=== PATIENT | female | born 1965 | race African-American/Black ===

== ENCOUNTER 2016-09-22 11:02 | Inpatient (IN) | payer OTHER ==
[~2016-09-22] VITALS: Ht 165.1 cm; Wt 127.2 kg
[~2016-09-22 11:02] MED LIST: AMLO-512 PO; ASPI-556 PO; ATEN50TA PO; CLON0.1T PO; DSS100 PO; FURO40 PO; GLIP5 PO; ISOS1TAB2 PO; VITAD1000 PO
[2016-09-22 11:11] LABS: GLUCOSE,POINT OF CARE 167 MG/DL (70-110)
[2016-09-22 11:29] LABS: BASOPHILS # (AUTO) 0.04 K/uL (0.00-0.20); BASOPHILS % (AUTO) 0.4 % (0.0-2.0); EOSINOPHILS % (AUTO) 5.39 % (1.0-6.0); HEMATOCRIT 35.5 % (36-46); HEMOGLOBIN 11.7 g/dL (12.0-16.0); LYMPHOCYTES # (AUTO) 1.4 K/uL (1.0-4.8); LYMPHOCYTES % (AUTO) 14.9 % (22.0-44.0); MEAN CORPUSCULAR HEMOGLOBIN 26.5 pg (26.0-34.0); MEAN CORPUSCULAR HGB CONC 32.9 G/dL (31.0-37.0); MEAN CORPUSCULAR VOLUME 81 fL (80-100); MONOCYTES # (AUTO) 0.4 K/uL (0.1-1.0); MONOCYTES % (AUTO) 4.4 % (2.0-9.0); NEUTROPHILS # (AUTO) 6.9 K/uL (1.8-7.7); NEUTROPHILS % (AUTO) 74.9 % (40.0-70.0); PLATELET COUNT (AUTO) 298 K/uL (150-450); RED CELL DISTRIBUTION WIDTH 17.2 % (11.5-14.5); WHITE BLOOD COUNT (AUTO) 9.3 K/uL (4.5-11.0)
[2016-09-22 11:39] LABS: CALCIUM, TOTAL 9.2 mg/dL (8.8-10.5); CREATININE 1.45 mg/dL (0.60-1.30); POTASSIUM 3.1 mmol/L (3.5-5.1)
[2016-09-22 11:45] LABS: ALBUMIN 3.2 g/dL (3.4-5.0); BILIRUBIN,TOTAL 0.7 mg/dL (0.1-1.0)
[2016-09-22] MEDS ORDERED: 0.9% SODIUM CHLORIDE 15 ML NEB SOLUTION NEB ONE (12:55)
[2016-09-22] MEDS ORDERED: IPRATROPIUM BROMIDE 0.5 MG/2.5 ML NEB SOLUTION NEB ONE (13:00)
[2016-09-22] MEDS ORDERED: ALBUTEROL SULFATE 5 MG/ML 20 ML NEB SOLN [BULK] NEB ONE (13:00)
[2016-09-22] MEDS ORDERED: CloNIDine HCL 0.1 MG TABLET PO ONE (16:30)
[2016-09-22] MEDS ORDERED: ATENOLOL 50 MG TABLET PO ONE (16:30)
[2016-09-22] MEDS ORDERED: FUROSEMIDE 40 MG/4 ML VIAL IVP ONE (16:30)
[2016-09-22] MEDS ORDERED: ASPIRIN 325 MG EC TABLET PO ONE (16:30)
[2016-09-22 17:06] LABS: GLUCOSE,POINT OF CARE 145 MG/DL (70-110)
[2016-09-22] MEDS ORDERED: CloNIDine HCL 0.2 MG TABLET PO ONE (18:45)
[2016-09-22 20:52] LABS: GLUCOSE,POINT OF CARE 178 MG/DL (70-110)
[2016-09-22] MEDS ORDERED: MORPHINE SULFATE 2 MG/ML SYRINGE IVP ONE (21:00)
[2016-09-22] MEDS ORDERED: ONDANSETRON HCL 4 MG/2 ML VIAL IVP ONE (21:00)
[2016-09-22] MEDS ORDERED: DEXTROSE 50%-WATER 25 GM/50 ML SYRINGE IVP PRN (21:15)
[2016-09-22] MEDS ORDERED: OxyCODONE HCL/ACETAMINOPHEN 5-325 MG TABLET PO PRN (21:15)
[2016-09-22] MEDS ORDERED: MAGNESIUM HYDROXIDE SUSPENSION 30 ML UDCUP PO PRN (21:15)
[2016-09-22] MEDS ORDERED: ACETAMINOPHEN 325 MG TABLET PO PRN (21:15)
[2016-09-22] MEDS ORDERED: ALBUTEROL SULFATE 2.5 MG/0.5 ML NEB SOLUTION NEB PRN (21:15)
[2016-09-22] MEDS ORDERED: CloNIDine HCL 0.1 MG TABLET PO PRN (21:15)
[2016-09-22] MEDS: ASPIRIN 81 MG CHEWABLE TABLET PO SCH (21:48)
[2016-09-22] MEDS: LOSARTAN POTASSIUM 25 MG TABLET PO SCH (21:48)
[2016-09-22] MEDS: SIMVASTATIN 20 MG TABLET PO SCH (21:48)
[2016-09-22] MEDS: AmLODIPine BESYLATE 10 MG TABLET PO SCH (21:48)
[2016-09-23] VITALS (9 sets, daily range): BP systolic 146–182; BP diastolic 9–109
[2016-09-23] MEDS: POTASSIUM CHLORIDE 20 MEQ ER TABLET PO PRN (00:45)
[2016-09-23 08:00] LABS: ANION GAP 8 mmol/L (8-16); CALCIUM, TOTAL 8.7 mg/dL (8.8-10.5); CARBON DIOXIDE 24 mmol/L (22-29); CHLORIDE 108 mmol/L (98-107); CREATININE 0.75 mg/dL (0.60-1.30); GLOMERULAR FILTR. RATE CALC > 60 mL/min (>60); POTASSIUM 4.5 mmol/L (3.5-5.1); SODIUM SERUM 140 mmol/L (136-145); UREA NITROGEN, BLOOD 26 mg/dL (7-18)
[2016-09-23] MEDS: CloNIDine HCL 0.2 MG TABLET PO SCH ×3 (08:00→20:00)
[2016-09-23] MEDS: HEPARIN SODIUM,PORCINE 5,000 UNITS/ML VIAL SQ SCH ×3 (08:23→20:00)
[2016-09-23] MEDS ORDERED: MORPHINE SULFATE 2 MG/ML SYRINGE IVP PRN (12:30)
[2016-09-23] MEDS ORDERED: NITROGLYCERIN 0.3 MG SUBLINGUAL TABLET #100 SL PRN (12:30)
[2016-09-23] MEDS ORDERED: NITROGLYCERIN 2% (1 GM=INCH) PACKET TP SCH (12:30)
[2016-09-23] MEDS: PANTOPRAZOLE SODIUM 40 MG DR TABLET PO SCH (12:53)
[2016-09-23] MEDS: DOCUSATE SODIUM 100 MG CAPSULE PO SCH ×2 (20:00→22:16)
[2016-09-23] MEDS: LOSARTAN POTASSIUM 25 MG TABLET PO SCH ×2 (20:00→22:16)
[2016-09-23] MEDS: NITROGLYCERIN 2% (1 GM=INCH) PACKET TP SCH (20:09)
[2016-09-23] MEDS: SIMVASTATIN 20 MG TABLET PO SCH (20:52)
[2016-09-23] MEDS: FUROSEMIDE 40 MG TABLET PO SCH (20:52)
[2016-09-23] MEDS: AmLODIPine BESYLATE 10 MG TABLET PO SCH (20:52)
[2016-09-23] MEDS: ASPIRIN 81 MG CHEWABLE TABLET PO SCH (20:52)
[2016-09-23] MEDS: INSULIN ASPART 100 UNITS/ML SQ PRN (20:56)
[2016-09-24] MEDS: CloNIDine HCL 0.2 MG TABLET PO SCH ×3 (01:51→08:32)
[2016-09-24 05:12] VITALS: BP 157/78
[2016-09-24] MEDS: NITROGLYCERIN 2% (1 GM=INCH) PACKET TP SCH ×3 (05:57→12:09)
[2016-09-24 06:11] LABS: CALCIUM, TOTAL 8.8 mg/dL (8.8-10.5); CREATININE 1.51 mg/dL (0.60-1.30)
[2016-09-24 06:30] LABS: BASOPHILS % (AUTO) 0.3 % (0.0-2.0); EOSINOPHILS % (AUTO) 5.6 % (1.0-6.0); HEMATOCRIT 32.8 % (36-46); HEMOGLOBIN 10.5 g/dL (12.0-16.0); LYMPHOCYTES # (AUTO) 1.6 K/uL (1.0-4.8); LYMPHOCYTES % (AUTO) 21.1 % (22.0-44.0); MEAN CORPUSCULAR HEMOGLOBIN 26.1 pg (26.0-34.0); MEAN CORPUSCULAR HGB CONC 31.9 G/dL (31.0-37.0); MEAN CORPUSCULAR VOLUME 82 fL (80-100); MONOCYTES # (AUTO) 0.5 K/uL (0.1-1.0); MONOCYTES % (AUTO) 6.3 % (2.0-9.0); NEUTROPHILS # (AUTO) 5.2 K/uL (1.8-7.7); NEUTROPHILS % (AUTO) 66.7 % (40.0-70.0); PLATELET COUNT (AUTO) 262 K/uL (150-450); RED CELL DISTRIBUTION WIDTH 16.5 % (11.5-14.5); WHITE BLOOD COUNT (AUTO) 7.8 K/uL (4.5-11.0)
[2016-09-24 07:06] LABS: POTASSIUM 2.9 mmol/L (3.5-5.1)
[2016-09-24 07:38] VITALS: BP 158/76
[2016-09-24] MEDS ORDERED: SODIUM CHLORIDE 0.9% 250 ML IV ONE ×2 (07:39→07:40)
[2016-09-24] MEDS: POTASSIUM CHL 10 MEQ/WATER 50 ML IV PRN ×3 (07:57→12:08)
[2016-09-24] MEDS: HEPARIN SODIUM,PORCINE 5,000 UNITS/ML VIAL SQ SCH ×2 (08:31)
[2016-09-24] MEDS: PANTOPRAZOLE SODIUM 40 MG DR TABLET PO SCH (08:32)
[2016-09-24] MEDS: DOCUSATE SODIUM 100 MG CAPSULE PO SCH ×2 (08:32→20:39)
[2016-09-24] MEDS: LOSARTAN POTASSIUM 25 MG TABLET PO SCH ×2 (08:32→20:39)
[2016-09-24 08:41] LABS: GLUCOSE,POINT OF CARE 133 MG/DL (70-110)
[2016-09-24] MEDS: INSULIN ASPART 100 UNITS/ML SQ PRN ×3 (12:03→20:45)
[2016-09-24 15:51] LABS: GLUCOSE COMMENT 1 Received Meds; GLUCOSE,POINT OF CARE 155 MG/DL (70-110)
[2016-09-24] MEDS ORDERED: 0.9% SODIUM CHLORIDE 5 ML NEB SOLUTION NEB ONE (16:53)
[2016-09-24 18:18] VITALS: BP 137/83
[2016-09-24 19:46] VITALS: BP 135/81
[2016-09-24] MEDS: ASPIRIN 81 MG CHEWABLE TABLET PO SCH (20:39)
[2016-09-24] MEDS: FUROSEMIDE 40 MG TABLET PO SCH (20:39)
[2016-09-24] MEDS: AmLODIPine BESYLATE 10 MG TABLET PO SCH (20:39)
[2016-09-24] MEDS: SIMVASTATIN 20 MG TABLET PO SCH (20:39)
[2016-09-24 23:51] VITALS: BP 156/98
[2016-09-25] MEDS: NITROGLYCERIN 2% (1 GM=INCH) PACKET TP SCH ×4 (00:49→11:38)
[2016-09-25] MEDS: HEPARIN SODIUM,PORCINE 5,000 UNITS/ML VIAL SQ SCH ×4 (00:50→16:19)
[2016-09-25] MEDS: CloNIDine HCL 0.2 MG TABLET PO SCH ×4 (00:50→16:16)
[2016-09-25 05:00] VITALS: BP 153/88
[2016-09-25 05:43] LABS: GLUCOSE COMMENT 1 Received Meds; GLUCOSE,POINT OF CARE 170 MG/DL (70-110)
[2016-09-25 05:43] LABS: GLUCOSE COMMENT 1 Received Meds; GLUCOSE,POINT OF CARE 157 MG/DL (70-110)
[2016-09-25 06:00] LABS: BASOPHILS # (AUTO) 0.02 K/uL (0.00-0.20); BASOPHILS % (AUTO) 0.3 % (0.0-2.0); EOSINOPHILS # (AUTO) 0.31 K/uL (0.00-0.70); HEMATOCRIT 30.8 % (36-46); HEMOGLOBIN 10.2 g/dL (12.0-16.0); LYMPHOCYTES # (AUTO) 1.1 K/uL (1.0-4.8); LYMPHOCYTES % (AUTO) 17.7 % (22.0-44.0); MEAN CORPUSCULAR HEMOGLOBIN 26.9 pg (26.0-34.0); MEAN CORPUSCULAR HGB CONC 33.2 G/dL (31.0-37.0); MEAN CORPUSCULAR VOLUME 81 fL (80-100); MONOCYTES # (AUTO) 0.5 K/uL (0.1-1.0); MONOCYTES % (AUTO) 7.1 % (2.0-9.0); NEUTROPHILS # (AUTO) 4.5 K/uL (1.8-7.7); NEUTROPHILS % (AUTO) 70.2 % (40.0-70.0); PLATELET COUNT (AUTO) 243 K/uL (150-450); RED BLOOD CELL COUNT(AUTO) 3.79 MIL/uL (4.00-5.20); RED CELL DISTRIBUTION WIDTH 17.2 % (11.5-14.5); WHITE BLOOD COUNT (AUTO) 6.4 K/uL (4.5-11.0)
[2016-09-25 06:15] LABS: CREATININE 1.65 mg/dL (0.60-1.30); POTASSIUM 3.2 mmol/L (3.5-5.1)
[2016-09-25] MEDS: INSULIN ASPART 100 UNITS/ML SQ PRN ×2 (06:49→11:39)
[2016-09-25 07:27] VITALS: BP 164/83
[2016-09-25] MEDS: DOCUSATE SODIUM 100 MG CAPSULE PO SCH (08:11)
[2016-09-25] MEDS: LOSARTAN POTASSIUM 25 MG TABLET PO SCH (08:11)
[2016-09-25] MEDS: PANTOPRAZOLE SODIUM 40 MG DR TABLET PO SCH (08:11)
[2016-09-25] MEDS: POTASSIUM CHLORIDE 20 MEQ ER TABLET PO PRN (08:12)
[2016-09-25] MEDS: FUROSEMIDE 40 MG TABLET PO SCH ×2 (08:12→09:00)
[2016-09-25] MEDS ORDERED: ALPRAZolam 0.25 MG TABLET PO PRN (11:00)
[2016-09-25 11:17] VITALS: BP 132/72
[2016-09-25 15:05] VITALS: BP 144/80
[2016-09-25] MEDS ORDERED: LOSA25TA21 PO (17:04)
[2016-09-25] MEDS ORDERED: SIMV-260 PO (17:05)
[2016-09-25] MEDS ORDERED: OXYGEN THERAPY IH SCH (20:00)
[2016-10-06 06:53] LABS: GLUCOSE COMMENT 1 Received Meds; GLUCOSE,POINT OF CARE 173 MG/DL (70-110)
[2016-10-06 06:54] LABS: GLUCOSE COMMENT 1 Received Meds; GLUCOSE,POINT OF CARE 171 MG/DL (70-110)
[2016-10-06 06:54] LABS: GLUCOSE,POINT OF CARE 159 MG/DL (70-110)
== END 2016-09-25 18:10 | disposition home or self-care (01) | DRG 304 ==
LOC: EMS 11:04 → AHU 09-23 07:24 → 5S 09-23 18:25
PROVIDERS: ADMIT Internal Medicine; ATTEND Internal Medicine
DX: I16.0 Hypertensive urgency (principal); I50.23 Acute on chronic systolic (congestive) heart failure; E44.0 Moderate protein-calorie malnutrition; Z68.42 Body mass index [BMI] 45.0-49.9, adult; N17.9 Acute kidney failure, unspecified; I11.0 Hypertensive heart disease with heart failure; E11.9 Type 2 diabetes mellitus without complications; E66.01 Morbid (severe) obesity due to excess calories; I70.0 Atherosclerosis of aorta; E78.5 Hyperlipidemia, unspecified; F15.10 Other stimulant abuse, uncomplicated; I25.5 Ischemic cardiomyopathy; F17.210 Nicotine dependence, cigarettes, uncomplicated; Z91.14 Patient's other noncompliance with medication regimen; Z79.899 Other long term (current) drug therapy; Z79.82 Long term (current) use of aspirin; Z79.84 Long term (current) use of oral hypoglycemic drugs; Z98.890 Other specified postprocedural states; Z71.51 Drug abuse counseling and surveillance of drug abuser; Z53.29 Procedure and treatment not carried out because of patient's decision for other reasons
CPT/HCPCS: 82962; 84132; 93005; 93306; 94644; 96374; 96375; 99291; J1644; J1940; J2270; J2405; J3480; J7050

== ENCOUNTER 2017-02-03 21:21 | Emergency (ER) | payer OTHER ==
[~2017-02-03] VITALS: Ht 162.6 cm; Wt 97.0 kg
[~2017-02-03 21:21] MED LIST changes: +LOSA25TA21 PO; +SIMV-260 PO
[2017-02-03 21:27] VITALS: BP 116/67
[2017-02-03 21:37] LABS: GLUCOSE,POINT OF CARE 318 MG/DL (70-110)
[2017-02-03] MEDS ORDERED: CARV25 PO (21:39)
[2017-02-03 22:01] LABS: BASOPHILS % (AUTO) 0.2 % (0.0-2.0); EOSINOPHILS % (AUTO) 1.5 % (1.0-6.0); HEMATOCRIT 35.9 % (36-46); HEMOGLOBIN 12.2 g/dL (12.0-16.0); LYMPHOCYTES # (AUTO) 1.3 K/uL (1.0-4.8); LYMPHOCYTES % (AUTO) 13.9 % (22.0-44.0); MEAN CORPUSCULAR HEMOGLOBIN 27.8 pg (26.0-34.0); MEAN CORPUSCULAR HGB CONC 33.9 G/dL (31.0-37.0); MEAN CORPUSCULAR VOLUME 82 fL (80-100); MONOCYTES # (AUTO) 0.7 K/uL (0.1-1.0); MONOCYTES % (AUTO) 7.5 % (2.0-9.0); NEUTROPHILS # (AUTO) 7.1 K/uL (1.8-7.7); NEUTROPHILS % (AUTO) 76.9 % (40.0-70.0); PLATELET COUNT (AUTO) 296 K/uL (150-450); RED BLOOD CELL COUNT(AUTO) 4.37 MIL/uL (4.00-5.20); RED CELL DISTRIBUTION WIDTH 15.3 % (11.5-14.5); WHITE BLOOD COUNT (AUTO) 9.2 K/uL (4.5-11.0)
[2017-02-03 22:12] LABS: ANION GAP 8 mmol/L (8-16); CALCIUM, TOTAL 9.6 mg/dL (8.8-10.5); CARBON DIOXIDE 30 mmol/L (22-29); CHLORIDE 100 mmol/L (98-107); GLOMERULAR FILTR. RATE CALC 28 mL/min (>60); POTASSIUM 3.6 mmol/L (3.5-5.1); SODIUM SERUM 138 mmol/L (136-145); UREA NITROGEN, BLOOD 21 mg/dL (7-18)
[2017-02-03 22:16] LABS: ALANINE AMINOTRANSFERASE 22 U/L (12-78); ASPARTATE AMINOTRANSFERASE 19 U/L (15-37); BILIRUBIN,TOTAL 0.3 mg/dL (0.1-1.0); CREATINE KINASE, TOTAL 269 U/L (26-192); TOTAL PROTEIN, SERUM 7.4 g/dL (6.4-8.2)
[2017-02-03 22:31] LABS: B-TYPE NATRIURETIC PEPTIDE 18 pg/mL (0-100)
[2017-02-03 22:43] LABS: APPEARANCE,URINE CLOUDY (CLEAR); GLUCOSE, URINE (UA) NEGATIVE (NEGATIVE); KETONES,URINE TRACE mg/dL (NEGATIVE); LEUKOCYTE ESTERASE ,URINE SMALL (NEGATIVE); OCCULT BLOOD,URINE NEGATIVE (NEGATIVE); PROTEIN,URINE SEE CONFIRM (NEGATIVE)
[2017-02-03 22:50] LABS: ADD UA MICROSCOPIC YES; RBC,URINE 0-2 /HPF (0-2); SQUAMOUS EPITHELIAL CELL,UR Many /LPF (None Seen); SULFOSALICYLIC ACID,URINE 2+ (Negative)
[2017-02-03 22:51] LABS: FINE GRANULAR CASTS,URINE 0-2 /LPF (None Seen)
[2017-02-03 23:08] LABS: CREATINE KINASE MB 3.4 ng/mL (0-5)
== END 2017-02-03 23:20 | disposition left against medical advice (07) ==
LOC: EMS 21:23
DX: E11.65 Type 2 diabetes mellitus with hyperglycemia (principal); I11.0 Hypertensive heart disease with heart failure; I50.9 Heart failure, unspecified; I42.9 Cardiomyopathy, unspecified; F17.210 Nicotine dependence, cigarettes, uncomplicated; N28.9 Disorder of kidney and ureter, unspecified; F12.90 Cannabis use, unspecified, uncomplicated; Z79.82 Long term (current) use of aspirin
CPT/HCPCS: 82962; 87086; 93005; 99285; 99406